=== PATIENT | female | born 1980 | race Two or more races ===

== ENCOUNTER 2016-05-07 08:31 | Outpatient (CLI) | payer MEDICAID | END 2016-05-07 08:32 | disposition home or self-care (01) | DX: Z00.00 Encounter for general adult medical examination without abnormal findings (principal); G25.81 Restless legs syndrome ==

== ENCOUNTER 2016-07-15 13:19 | Outpatient (CLI) | payer MEDICAID | END 2016-07-15 13:20 | disposition home or self-care (01) | DX: N83.292 Other ovarian cyst, left side (principal) ==

== ENCOUNTER 2016-09-11 11:38 | Outpatient (CLI) | payer MEDICAID ==
[2016-09-11 19:20] LABS: BASOPHILS # (AUTO) 0.1 10^3/uL (0.0-0.1); BASOPHILS % (AUTO) 0.9 %; EOSINOPHILS % (AUTO) 0.4 %; HCT - HEMATOCRIT 39.1 % (37.0-47.0); HGB - HEMOGLOBIN 13.3 g/dL (12.0-16.0); LYMPHOCYTES # (AUTO) 1.5 10^3/uL (1.5-3.5); LYMPHOCYTES % (AUTO) 24.3 %; MEAN CORPUSCULAR VOLUME 88.3 fL (81.0-99.0); MEAN PLATELET VOLUME 10.1 fL (7.9-10.8); MONOCYTES # (AUTO) 0.3 10^3/uL (0.0-1.0); MONOCYTES % (AUTO) 5.8 %; NEUTROPHILS # (AUTO) 4.1 10^3/uL (1.5-6.6); NEUTROPHILS % (AUTO) 68.6 %; NUCLEATED RED BLOOD CELLS AUTO 0.1 /100WBC; RED BLOOD COUNT 4.43 10^6/uL (4.20-5.40)
[2016-09-11 19:37] LABS: ALBUMIN/GLOBULIN RATIO 1.4 (1.0-2.2); BILIRUBIN,TOTAL 0.7 mg/dL (0.2-1.0); CALCIUM 9.4 mg/dL (8.5-10.3); CREATININE 0.5 mg/dL (0.4-1.0); POTASSIUM 3.8 mmol/L (3.5-5.0)
== END 2016-09-11 11:39 | disposition home or self-care (01) ==
LOC: LAB.WCP 11:38
PROVIDERS: ATTEND Physician Assistant Medical
DX: R35.0 Frequency of micturition (principal)
CPT/HCPCS: 36415; 80053; 85025